=== PATIENT | female | born 1945 | race Caucasian/White ===

== ENCOUNTER → 2018-02-14 | Outpatient (CLI) | payer OTHER | LOC: M PLARAD 14:46 | DX: M54.5 Low back pain (principal) ==

== ENCOUNTER → 2021-01-18 | Outpatient (CLI) | payer MEDICARE, BC, OTHER ==
[~2021-01-18] MED LIST: ISOVUE-300 61% 50ML VIAL As Ordered ONE; LIDOCAINE 1% MDV 20ML VIAL As Ordered ONE; methylPREDNISolone SUSP 40MG/ML 1ML VIAL (DEPO MEDROL) As Ordered ONE
--- NOTE | 2021-01-18 17:07 | REP ---
INDICATION: WADE FOOT OA. COMPARISON: None. TECHNIQUE: The procedure was performed under the direct supervision of Dr. Vyas. The benefits and risks including but not limited to pain infection bleeding and anaphylaxis were explained to the patient and informed consent was obtained. The right foot was addressed 1st. The 2nd 3rd tarsometatarsal joint spaces were localized using fluoroscopic guidance. The skin was prepped and draped in a sterile fashion. 1% lidocaine was used as a local anesthetic. Using fluoroscopic guidance, and last image hold technology, a 25 gauge needle was inserted and advanced into the joint. 0.5 mL of Isovue-300 was injected to verify placement. 3 mL of a solution containing 2 mL of 1% lidocaine and 1 mL of Depo-Medrol 40 mg was injected. The needle was then removed. The left foot was then addressed. The 2nd and 3rd tarsometatarsal joint spaces were localized using fluoroscopic guidance. The skin was prepped and draped in a sterile fashion. 1% lidocaine was used as a local anesthetic. Using fluoroscopic guidance, and last image hold technology, a 25 gauge needle was inserted and advanced into the joint. 0.5 mL of Isovue-300 was injected to verify placement. 3 mL of a solution containing 2 mL of 1% lidocaine and 1 mL of Depo-Medrol 40 mg was injected. The needle was then removed. The patient tolerated the procedure well and there were no immediate complications. Less than 6 seconds of fluoroscopy time was utilized for this procedure. FINDINGS: None IMPRESSION: Fluoro guidance for bilateral 2nd and 3rd tarsometatarsal joint injection. <Electronically signed by Juan F Petersen > 01/18/21 1621 <Electronically signed by Jonas Vyas > 01/18/21 1707
== END ==
LOC: M RADPRO 12:49
PROVIDERS: ATTEND Physician Assistant
DX: M19.071 Primary osteoarthritis, right ankle and foot (principal); M19.072 Primary osteoarthritis, left ankle and foot
CPT/HCPCS: 20600; 77002; J1030; Q9967

== ENCOUNTER → 2021-03-16 | Outpatient (CLI) | payer MEDICARE, BC, OTHER ==
[2021-03-16 14:55] LABS: BASO # 0.1 10^3/uL (0.0-0.2); BASO % 1.5 % (0.0-1.0); EOS # 0.2 10^3/uL (0.0-0.5); EOS % 2.8 % (0.0-3.0); HEMATOCRIT 40.9 % (36.0-47.0); HEMOGLOBIN 13.1 g/dl (12.0-15.5); LYMPH # 1.8 10^3/uL (1.5-5.0); LYMPH % 33.5 % (24.0-44.0); MEAN CORPUSCULAR HEMOGLOBIN 30.5 pg (27.0-33.0); MEAN CORPUSCULAR VOLUME 95.1 fl (80.0-96.0); MONO # 0.4 10^3/uL (0.0-0.8); MONO % 7.5 % (2.0-8.0); NEUTROPHILS # 2.9 10^3/uL (1.5-8.5); PLATELET COUNT, AUTOMATED 257 10^3/uL (150-450); WHITE BLOOD COUNT 5.4 10^3/uL (4.0-10.0)
[2021-03-16 15:23] LABS: RHEUMATOID FACTOR QUANT < 10.0 IU/ML (<15.0); URIC ACID 6.2 MG/DL (2.6-6.0)
[2021-03-16 15:27] LABS: ERYTHROCYTE SEDIMENTATION RATE 10 mm/hr (0-30)
[2021-03-27 14:08] LABS: ANTINUCLEAR ANTIBODIES DIRECT Negative (Negative); HLA-B27 Negative (.); Lyme Disease IgG/IgM Antibodie <0.91 ISR (0.00-0.90); Lyme Disease IgM Ab Quantitati <0.80 index (0.00-0.79)
== END ==
LOC: M PLALAB 12:41
PROVIDERS: ATTEND Orthopaedic Surgery
DX: M19.071 Primary osteoarthritis, right ankle and foot (principal)

== ENCOUNTER → 2021-04-19 | Outpatient (CLI) | payer MEDICARE, BC, OTHER ==
[~2021-04-19] MED LIST changes: +TRIAMCINOLONE ACETONIDE SUSP 40 MG/ML VIAL (J3301) As Ordered ONE
--- NOTE | 2021-04-19 17:49 | REP ---
INDICATION: PRIMARY OSTEOARTHRITIS, RIGHT ANKLE AND FOOT. COMPARISON: None. TECHNIQUE: The procedure was performed under the direct supervision of Dr. Colón. The benefits and risks including but not limited to pain infection bleeding and anaphylaxis were explained to the patient and informed consent was obtained. The right 2nd and 3rd tarsometatarsal joints were localized using fluoroscopic guidance. The skin was prepped and draped in a sterile fashion. 1% lidocaine was used as a local anesthetic. Using fluoroscopic guidance, and last image hold technology, a 25 gauge needle was inserted and advanced into the joint. 0.5 mL of Isovue-300 was injected to verify placement. 3 mL of a solution containing 2 mL of 1% lidocaine and 1 mL of Depo-Medrol 40 mg was injected. The needle was then removed. The patient tolerated the procedure well and there were no immediate complications. Less than 6 seconds of fluoroscopy time was utilized for this procedure. FINDINGS: None IMPRESSION: Fluoro guidance for right 2nd and 3rd tarsometatarsal joint injection. <Electronically signed by Juan F Petersen > 04/19/21 1527 <Electronically signed by David Colón > 04/19/21 1157
--- NOTE | 2021-04-19 17:49 | REP ---
INDICATION: PRIMARY OSTEOARTHRITIS, left ANKLE AND FOOT. COMPARISON: None. TECHNIQUE: The procedure was performed under the direct supervision of Dr. Colón. The benefits and risks including but not limited to pain infection bleeding and anaphylaxis were explained to the patient and informed consent obtained. The left 2nd and 3rd tarsometatarsal joints were localized using fluoroscopic guidance. The skin was prepped and draped in a sterile fashion. 1% lidocaine was used as a local anesthetic. Using fluoroscopic guidance, and last image hold technology, a 25 gauge needle was inserted and advanced into the joint. 0.5 mL of Isovue 300 was injected to verify placement. 3 mL of a solution containing 2 mL of 1% lidocaine and 1 mL of Kenalog 40 mg was injected. The needle was then removed. The patient tolerated the procedure well and there were no immediate complications. Less than 6 seconds of fluoroscopy time was utilized for this procedure. FINDINGS: None IMPRESSION: Fluoro guidance for left 2nd and 3rd tarsometatarsal joint injection. <Electronically signed by Juan F Petersen > 04/19/21 1528 <Electronically signed by David Colón > 04/19/21 [id number]
== END ==
LOC: M RADPRO 10:26
PROVIDERS: ATTEND Physician Assistant
DX: M19.071 Primary osteoarthritis, right ankle and foot (principal); M19.072 Primary osteoarthritis, left ankle and foot
CPT/HCPCS: 20605; 77002; J1030; J3301; Q9967

== ENCOUNTER → 2021-08-15 | Outpatient (CLI) | payer MEDICARE, BC, OTHER ==
[~2021-08-15] MED LIST changes: -TRIAMCINOLONE ACETONIDE SUSP 40 MG/ML VIAL (J3301) As Ordered ONE
== END ==
LOC: M RADPRO 12:25
PROVIDERS: ATTEND Physician Assistant
DX: M19.071 Primary osteoarthritis, right ankle and foot (principal); M19.072 Primary osteoarthritis, left ankle and foot
CPT/HCPCS: 20600; 77002; J1030; Q9967

== ENCOUNTER → 2021-12-22 | Outpatient (CLI) | payer MEDICARE, BC, OTHER | LOC: M RAD 12:37 | PROVIDERS: ATTEND Physician Assistant | DX: M21.42 Flat foot [pes planus] (acquired), left foot (principal); M21.41 Flat foot [pes planus] (acquired), right foot | CPT/HCPCS: 76000; J1030; Q9967 ==

== ENCOUNTER → 2022-04-18 | Outpatient (CLI) | payer MEDICARE, BC, OTHER | LOC: M RAD 14:03 | PROVIDERS: ATTEND Physician Assistant | DX: M21.41 Flat foot [pes planus] (acquired), right foot (principal); M19.071 Primary osteoarthritis, right ankle and foot; M19.072 Primary osteoarthritis, left ankle and foot; M21.42 Flat foot [pes planus] (acquired), left foot | CPT/HCPCS: 20600; 76000; J1030; Q9967 ==

== ENCOUNTER → 2022-08-15 | Outpatient (CLI) | payer MEDICARE, BC, OTHER ==
[~2022-08-15] MED LIST changes: +ISOVUE-300 61% 100ML VIAL As Ordered ONE; -ISOVUE-300 61% 50ML VIAL As Ordered ONE
== END ==
LOC: M RAD 13:57
PROVIDERS: ATTEND Physician Assistant
DX: M21.41 Flat foot [pes planus] (acquired), right foot (principal); M21.42 Flat foot [pes planus] (acquired), left foot; M19.071 Primary osteoarthritis, right ankle and foot
CPT/HCPCS: 20600; 77002; J1030; Q9967

== ENCOUNTER → 2022-11-30 | Outpatient (CLI) | payer MEDICARE, BC, OTHER | LOC: M RAD 12:21 | PROVIDERS: ATTEND Physician Assistant | DX: M21.41 Flat foot [pes planus] (acquired), right foot (principal); M21.42 Flat foot [pes planus] (acquired), left foot; M19.071 Primary osteoarthritis, right ankle and foot | CPT/HCPCS: 20600; 77002; J1030; Q9967 ==

== ENCOUNTER → 2023-08-07 | Outpatient (CLI) | payer MEDICARE, BC | LOC: M RAD 13:09 | PROVIDERS: ATTEND Physician Assistant | DX: M21.41 Flat foot [pes planus] (acquired), right foot (principal); M19.071 Primary osteoarthritis, right ankle and foot; M21.42 Flat foot [pes planus] (acquired), left foot; M19.072 Primary osteoarthritis, left ankle and foot | CPT/HCPCS: 20600; 77002; J1010; Q9967 ==

== ENCOUNTER → 2023-12-10 | Outpatient (CLI) | payer MEDICARE, BC | LOC: M RAD 14:00 | PROVIDERS: ATTEND Physician Assistant | DX: M19.072 Primary osteoarthritis, left ankle and foot (principal); M19.071 Primary osteoarthritis, right ankle and foot | CPT/HCPCS: 20600; 77002; J1010; Q9967 ==

== ENCOUNTER → 2024-04-13 | Outpatient (CLI) | payer MEDICARE, BC | LOC: M RAD 13:10 | PROVIDERS: ATTEND Physician Assistant | DX: M19.072 Primary osteoarthritis, left ankle and foot (principal); M19.071 Primary osteoarthritis, right ankle and foot | CPT/HCPCS: 20605; 77002; J1010; Q9967 ==

== ENCOUNTER → 2024-08-17 | Outpatient (CLI) | payer MEDICARE, BC | LOC: M RAD 07-16 10:51 | PROVIDERS: ATTEND Physician Assistant | DX: M19.071 Primary osteoarthritis, right ankle and foot (principal); M19.072 Primary osteoarthritis, left ankle and foot | CPT/HCPCS: 20605; 77002; J1010; Q9967 ==

== ENCOUNTER → 2024-11-24 | Outpatient (CLI) | payer MEDICARE, BC ==
[~2024-11-24] MED LIST changes: +ISOVUE-300 61% 100 ML VIAL As Ordered ONE; -ISOVUE-300 61% 100ML VIAL As Ordered ONE; +LIDOCAINE 1% MDV 20 ML VIAL As Ordered ONE; -LIDOCAINE 1% MDV 20ML VIAL As Ordered ONE; +methylPREDNISolone SUSP 40 MG/ML 1 ML VIAL As Ordered ONE; -methylPREDNISolone SUSP 40MG/ML 1ML VIAL (DEPO MEDROL) As Ordered ONE
== END ==
LOC: M RAD 14:49
PROVIDERS: ATTEND Physician Assistant
DX: M19.071 Primary osteoarthritis, right ankle and foot (principal)
CPT/HCPCS: 20600; 77002; J1010; Q9967